=== PATIENT | male | born 1975 ===

== ENCOUNTER 2019-01-15 14:48 | Emergency (ER) | payer OTHER ==
[2019-01-15 15:13] VITALS: BP 109/68; PULSE 71; RESP 18; TEMP 99.2; O2SAT 99
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
== END 2019-01-15 16:55 | disposition home or self-care (01) ==
LOC: H.ER 14:48
DX: M54.5 Low back pain (principal); V89.2XXA Person injured in unspecified motor-vehicle accident, traffic, initial encounter